=== PATIENT | male | born 1940 | race Caucasian/White ===

== ENCOUNTER 2017-04-29 18:50 | Emergency (ER) | payer OTHER ==
[~2017-04-29] VITALS: Ht 172.7 cm; Wt 94.5 kg
[2017-04-29 20:06] LABS: HEMOGLOBIN 11.2 G/DL (12.5-16.6); MCH 28.9 PG (29.0-34.0); MCHC 32.9 G/DL (30.0-36.0); MCV 87.6 FL (86-99); PLATELET COUNT 312 K/uL (156-360); RBC DIS.WIDTH-CV 12.7 % (11.8-14.6); RBC DIS.WIDTH-SD 41.1 % (39-53); RED BLOOD COUNT 3.88 M/uL (4.00-5.50); WHITE BLOOD COUNT 12.2 K/uL (4.1-10.2)
[2017-04-29 20:17] LABS: CHLORIDE 101 mEq/L (99-109); POTASSIUM 3.3 mEq/L (3.7-5.4); SODIUM 137 mEq/L (136-147)
[2017-04-29 20:18] LABS: GLUCOSE 110 mg/dL (70-99)
[2017-04-29 20:22] LABS: CREATININE 1.2 mg/dL (0.6-1.3); GFR ESTIMATE (CALCULATED) > 59 mL/min/ (58.99-99999)
[2017-04-29 20:23] LABS: UREA NITROGEN (BUN) 20 mg/dL (9-23)
[2017-04-29] MEDS ORDERED: AUGMENTIN875 MG PO (22:16)
[2017-04-29 22:54] VITALS: BP 147/105
== END 2017-04-29 22:56 | disposition home or self-care (01) ==
LOC: EME 18:50
PROVIDERS: Physician Assistant
PROC: 0CQ1XZZ Repair Lower Lip, External Approach (ICD-10-PCS; principal; 2017-04-29)
DX: S02.40DA Maxillary fracture, left side, initial encounter for closed fracture (principal); S02.40CA Maxillary fracture, right side, initial encounter for closed fracture; S01.511A Laceration without foreign body of lip, initial encounter; W22.8XXA Striking against or struck by other objects, initial encounter; Z97.2 Presence of dental prosthetic device (complete) (partial); I10 Essential (primary) hypertension; K21.9 Gastro-esophageal reflux disease without esophagitis; Z87.891 Personal history of nicotine dependence
CPT/HCPCS: 70450; 70486; 71046; 72125; 80048; 85027; 99281; 99284

== ENCOUNTER → 2017-07-01 | Outpatient (CLI) | payer MEDICARE, OTHER ==
[~2017-07-01] MED LIST: AMLODIPINE-BEN1 EAC2 PO; AUGMENTIN875 MG PO; CARDURA2 M1 PO; COZAAR25 MG PO; IRON18 MG PO; LO-DOSE ASPIRIN81 M2 PO; NAPROSYN500 MG PO; NEXIUM 24HR20 M2 PO; VITAMIN B-12250 MCG PO
== END | disposition home or self-care (01) ==
LOC: CDC
DX: Z01.810 Encounter for preprocedural cardiovascular examination (principal); K40.20 Bilateral inguinal hernia, without obstruction or gangrene, not specified as recurrent; R94.31 Abnormal electrocardiogram [ECG] [EKG]
CPT/HCPCS: 93000

== ENCOUNTER 2017-07-08 06:44 | Day surgery (SDC) | payer OTHER ==
[~2017-07-08] VITALS: Ht 175.3 cm; Wt 93.0 kg
[2017-07-08] MEDS ORDERED: CALCIUM + VITA1 EAC2 PO ×2 (08:05→08:06)
[2017-07-08 08:11] VITALS: BP 185/79
[2017-07-08] MEDS ORDERED: PERCOCET 5/31 TABLET PO (13:26)
[2017-07-08] MEDS ORDERED: COLACE100 MG PO (13:26)
[2017-07-08 14:40] VITALS: BP 135/63
[2017-07-08 15:30] VITALS: BP 149/66
== END 2017-07-08 15:35 | disposition home or self-care (01) ==
LOC: SDC
PROC: 0YUA4JZ Supplement Bilateral Inguinal Region with Synthetic Substitute, Percutaneous Endoscopic Approach (ICD-10-PCS; principal; 2017-07-08)
DX: K40.20 Bilateral inguinal hernia, without obstruction or gangrene, not specified as recurrent (principal); I10 Essential (primary) hypertension; Z85.51 Personal history of malignant neoplasm of bladder; Z79.82 Long term (current) use of aspirin; Z87.891 Personal history of nicotine dependence; Z83.3 Family history of diabetes mellitus; Z82.0 Family history of epilepsy and other diseases of the nervous system
CPT/HCPCS: C1781; J0360; J0690; J1100; J1170; J1885; J2405; J2710; J3475; J7643; Q0175; S0020

== ENCOUNTER → 2017-08-20 | Outpatient (CLI) | payer OTHER ==
[~2017-08-20] MED LIST changes: +CALCIUM + VITA1 EAC2 PO; +COLACE100 MG PO; +PERCOCET 5/31 TABLET PO
== END | disposition home or self-care (01) ==
DX: M17.11 Unilateral primary osteoarthritis, right knee (principal); R26.2 Difficulty in walking, not elsewhere classified; M25.561 Pain in right knee; M25.661 Stiffness of right knee, not elsewhere classified; M62.81 Muscle weakness (generalized); Z74.1 Need for assistance with personal care
CPT/HCPCS: 97161 GP; 97165 GO; 97530 GP; 97535 GO; G8978 GP; G8979 GP; G8980 GP; G8987 GO; G8988 GO; G8989 GO

== ENCOUNTER 2017-09-22 20:50 | Inpatient (IN) | payer OTHER ==
[~2017-09-22] VITALS: Ht 175.3 cm; Wt 143.3 kg
[2017-09-23 09:53] VITALS: BP 142/71
[2017-09-23 14:24] LABS: HEMATOCRIT 31.7 % (38.0-50.0); HEMOGLOBIN 10.2 G/DL (12.5-16.6); MCH 28.8 PG (29.0-34.0); MCHC 32.2 G/DL (30.0-36.0); MCV 89.5 FL (86-99); PLATELET COUNT 228 K/uL (156-360); RBC DIS.WIDTH-CV 15.2 % (11.8-14.6); RBC DIS.WIDTH-SD 50.4 % (39-53); RED BLOOD COUNT 3.54 M/uL (4.00-5.50); WHITE BLOOD COUNT 8.9 K/uL (4.1-10.2)
[2017-09-23 15:55] VITALS: BP 155/67
[2017-09-23 19:49] VITALS: BP 164/77
[2017-09-23 23:42] VITALS: BP 169/83
[2017-09-24 05:02] VITALS: BP 165/67
[2017-09-24 06:49] LABS: CHLORIDE 101 MEQ/L (99-109); CREATININE 1.2 MG/DL (0.6-1.3); GFR ESTIMATE (CALCULATED) > 59 mL/min/ (58.99-99999); GLUCOSE 131 mg/dL (70-99); POTASSIUM 3.6 MEQ/L (3.7-5.4); SODIUM 136 MEQ/L (136-147); UREA NITROGEN (BUN) 20 mg/dL (9-23)
[2017-09-24 08:28] LABS: HEMATOCRIT 32.1 % (38.0-50.0); HEMOGLOBIN 10.5 G/DL (12.5-16.6); MCV 89.4 FL (86-99)
[2017-09-24 08:30] VITALS: BP 130/61
[2017-09-24 12:30] VITALS: BP 155/69
[2017-09-24 15:58] VITALS: BP 160/62
[2017-09-24 22:59] VITALS: BP 158/70
[2017-09-25 06:06] LABS: HEMATOCRIT 30.7 % (38.0-50.0); HEMOGLOBIN 10.2 G/DL (12.5-16.6)
[2017-09-25 08:13] VITALS: BP 177/70
[2017-09-25] MEDS ORDERED: SENNA PLUS TAB1 EACH PO (09:05)
[2017-09-25] MEDS ORDERED: LOVENOX40 MG/0.4 SC (09:05)
[2017-09-25] MEDS ORDERED: OXYCODONE HCL5 MG PO (09:05)
== END 2017-09-25 17:09 | disposition home or self-care (01) | DRG 470 ==
LOC: ENRESERV 20:50 → 2SOUTH 09-23 08:45 → ENRESERV 09-23 13:34 → 3EAST 09-23 15:45 → 2SOUTH 09-23 15:53 → 3EAST 09-25 17:09
PROVIDERS: Orthopaedic Surgery
PROC: 0SRC0J9 Replacement of Right Knee Joint with Synthetic Substitute, Cemented, Open Approach (ICD-10-PCS; principal; 2017-09-23)
DX: M17.11 Unilateral primary osteoarthritis, right knee (principal); K21.9 Gastro-esophageal reflux disease without esophagitis; I10 Essential (primary) hypertension; Z85.51 Personal history of malignant neoplasm of bladder; Z82.49 Family history of ischemic heart disease and other diseases of the circulatory system; Z80.43 Family history of malignant neoplasm of testis; Z87.891 Personal history of nicotine dependence
CPT/HCPCS: 73560; 80048; 85014; 85018; 85027; 86850; 86900; 86901; 86920; C1713; J0690; J1170; J1650; J2250; J2405; J2795; J7030; J7050; S0020